=== PATIENT | male | born 1960 | race Caucasian/White ===

== ENCOUNTER 2017-03-20 08:45 | Emergency (ER) | payer OTHER ==
[~2017-03-20] VITALS: Ht 175.3 cm; Wt 116.1 kg
[2017-03-20 09:06] VITALS: BP 159/91; PULSE 100; RESP 16; TEMP 100.2; O2SAT 92
[2017-03-20] MEDS ORDERED: CIAL5TAB PO (09:30)
[2017-03-20] MEDS ORDERED: FLUO40CA PO (09:30)
[2017-03-20] MEDS ORDERED: HYDR25TA5 PO (09:30)
[2017-03-20] MEDS ORDERED: ATOR80TA45 PO (09:30)
--- NOTE | 2017-03-20 09:37 | PD ---
HPI Chief Complaint: Cold / Flu Symptoms Time Seen by Provider: 09:20 Travel History International Travel<30 days: No Contact w/Intl Traveler<30days: No Traveled to known affect area: No History of Present Illness HPI This patient complains of runny nose congestion cough. He's had subjective fever. Duration 2 days. Severity is moderate. No alleviating factors. No exacerbating factors. He quit smoking years ago. He denies lung disease other than saying he was treated for pneumonia one month ago. No ill contacts. PFSH Past Medical History Anxiety: Yes Depression: Yes Cardiovascular Problems: Yes (HTN, high chol) High Cholesterol: Yes Hypertension: Yes Respiratory: Yes (pneumonia) Tetanus Vaccination: Unknown Influenza Vaccination: No Past Surgical History Joint Replacement: Yes (bilat hip replacement ) Social History Alcohol Use: Yes (1-2 several times weekly) Tobacco Use: No Substance Use: No Allergies-Medications (Allergen,Severity, Reaction): Coded Allergies: No Known Allergies (Unverified , 03/20/17) Reported Meds & Prescriptions Reported Meds & Active Scripts Active Reported Cialis (Tadalafil) 5 Mg Tab 5 Mg PO DIRECTED Do not exceed 1 dose/day. Atorvastatin (Atorvastatin Calcium) 80 Mg Tab 80 Mg PO DAILY Hydrochlorothiazide 25 Mg Tab 25 Mg PO DAILY Fluoxetine (Fluoxetine HCl) 40 Mg Cap 40 Cap PO DAILY Review of Systems General / Constitutional: Positive: Fever HENT: No: Lightheadedness Respiratory: Positive: Cough Gastrointestinal: No: Vomiting Genitourinary: No: Urgency Musculoskeletal: No: Myalgias Skin: No Rash Physical Exam Narrative GENERAL: Well-nourished, well-developed patient in no apparent distress. SKIN: Focused skin assessment reveals no rash and nodules. Skin is Warm and dry. HEAD: Atraumatic. Normocephalic. EYES: Pupils equal and round. No scleral icterus. No injection or drainage. ENT: No nasal bleeding or discharge. Mucous membranes pink and moist. Nares shows some rhinorrhea, throat clear NECK: Trachea midline. No JVD. CARDIOVASCULAR: Regular rate and rhythm. No murmur appreciated. RESPIRATORY: No accessory muscle use. Clear to auscultation. Breath sounds equal bilaterally. GASTROINTESTINAL: Abdomen soft, non-tender, nondistended. Hepatic and splenic margins not palpable. MUSCULOSKELETAL: No obvious deformities. No clubbing. No cyanosis. No edema. NEUROLOGICAL: Awake and alert. No obvious cranial nerve deficits. Motor grossly within normal limits. Normal speech. PSYCHIATRIC: Appropriate mood and affect; insight and judgment normal. Data Data Last Documented VS Vital Signs Date Time Temp Pulse Resp B/P (MAP) Pulse Ox O2 Delivery O2 Flow Rate FiO2 03/20/17 09:25 Room Air 03/20/17 09:06 100.2 100 16 159/91 (113) 92 Orders Orders Chest, Single Ap (03/20/17 ) Influenzae A/B Antigen (03/20/17 09:30) MDM Medical Decision Making Medical Screen Exam Complete: Yes Emergency Medical Condition: Yes Medical Record Reviewed: Yes Differential Diagnosis Flu syndrome, pneumonia, bronchitis Narrative Course I have reviewed the patient's electronic medical record. Influenza swab is positive I reviewed his chest x-ray which shows a bit of atelectasis in the left base. Radiologist reading is noted. This does not look like a infiltrate requiring treatment He has viral infection Inhaler prescribed to use as needed Diagnosis Primary Impression: Influenza A Additional Instructions: The patient was advised to follow up with their physician and return if they worsen. Med/Other Pt SpecificInfo: Prescription(s) given Scripts Albuterol 18 GM Inh (Ventolin Hfa 18 GM Inh) 90 Mcg/Act Aer 2 PUFF INH Q4-6H Y for SHORTNESS OF BREATH, #1 INHALER 0 Refills Prov: German Nathan MD 03/20/17 Disposition: 01 DISCHARGE HOME Condition: Stable German Nathan MD Mar 20, 2017 09:37
--- NOTE | 2017-03-20 09:56 | RADRPT ---
EXAM DATE/TIME: 03/20/2017 09:37 [facility] COMPARISON: No previous studies available for comparison. INDICATIONS : Cough, short of breath, diagnosed with pneumonia 2 months ago. MEDICAL HISTORY : None. SURGICAL HISTORY : None. ENCOUNTER: Initial ACUITY: 4 - 6 days PAIN SCORE: 0/10 LOCATION: Bilateral chest FINDINGS: A single view of the chest demonstrates diminished lung volumes. Minimal patchy density left lower lo be. Right lung clear. Heart normal in size The cardiomediastinal contours are unremarkable. Osseous structures are intact. CONCLUSION: Minimal patchy density left lower lobe could be atelectasis or infiltrate. Navdeep Farfan MD on March 20, 2017 at 9:53 Board Certified Radiologist. This report was verified electronically.
[2017-03-20] MEDS ORDERED: VENTAER INH (10:23)
[2017-03-20 10:59] VITALS: BP 135/83
== END 2017-03-20 11:01 | disposition home or self-care (01) ==
LOC: PHED 08:45
DX: J10.1 Influenza due to other identified influenza virus with other respiratory manifestations (principal); E78.00 Pure hypercholesterolemia, unspecified; I10 Essential (primary) hypertension; Z87.891 Personal history of nicotine dependence
CPT/HCPCS: 71045; 87804; 99284

== ENCOUNTER 2017-03-27 09:43 | Emergency (ER) | payer OTHER ==
[~2017-03-27] VITALS: Ht 177.8 cm; Wt 112.0 kg
[~2017-03-27 09:43] MED LIST: ATOR80TA45 PO; CIAL5TAB PO; FLUO40CA PO; HYDR25TA5 PO; VENTAER INH
[2017-03-27 09:46] VITALS: BP 143/97; PULSE 70; RESP 20; TEMP 97.9; O2SAT 94
--- NOTE | 2017-03-27 10:05 | PD ---
HPI Chief Complaint: General Weakness Time Seen by Provider: 09:57 Travel History International Travel<30 days: No Contact w/Intl Traveler<30days: No Traveled to known affect area: No History of Present Illness HPI This is a 57-year-old male who presents to the emergency department having been diagnosed with influenza A 1 week ago who is here with generalized weakness, constant, severe, feeling like he does not have the motivation to do anything. His says that he has not been staying awake long enough to eat or drink and she is worried he is getting dehydrated. He has had a nonproductive cough and some rhinorrhea but otherwise his chief complaint is feeling very malaised. PFSH Past Medical History Anxiety: Yes Depression: Yes Cardiovascular Problems: Yes (HTN, high chol) High Cholesterol: Yes Diminished Hearing: No Hypertension: Yes Respiratory: Yes (pneumonia) Tetanus Vaccination: < 5 Years Influenza Vaccination: No Past Surgical History Joint Replacement: Yes (bilat hip replacement ) Social History Alcohol Use: Yes (1-2 several times weekly) Tobacco Use: No Substance Use: No Allergies-Medications (Allergen,Severity, Reaction): Coded Allergies: No Known Allergies (Unverified , 03/27/17) Reported Meds & Prescriptions Reported Meds & Active Scripts Active Ventolin Hfa 18 GM Inh (Albuterol Sulfate) 90 Mcg/Act Aer 2 Puff INH Q4-6H PRN Reported Cialis (Tadalafil) 5 Mg Tab 5 Mg PO DIRECTED Do not exceed 1 dose/day. Atorvastatin (Atorvastatin Calcium) 80 Mg Tab 80 Mg PO DAILY Hydrochlorothiazide 25 Mg Tab 25 Mg PO DAILY Fluoxetine (Fluoxetine HCl) 40 Mg Cap 40 Cap PO DAILY Review of Systems Except as stated in HPI: all other systems reviewed are Neg Physical Exam Narrative GENERAL:Well appearing, no acute distress. Has ketotic odor SKIN: Focused skin assessment warm and dry. HEAD: Atraumatic. Normocephalic. EYES: Pupils equal and round. No injection or drainage. ENT: Dry mucous membranes. Mild posterior pharyngeal erythema with no exudates. NECK: Trachea midline. CARDIOVASCULAR: Regular rate and rhythm. No murmur appreciated. RESPIRATORY: Clear to auscultation. Breath sounds equal bilaterally. GASTROINTESTINAL: Abdomen soft, non-tender, nondistended. MUSCULOSKELETAL: No obvious deformities. NEUROLOGICAL: Awake and alert. No obvious cranial nerve deficits. Moving all extremities. PSYCHIATRIC: Appropriate mood and affect; insight and judgment normal. Data Data Last Documented VS Vital Signs Date Time Temp Pulse Resp B/P (MAP) Pulse Ox O2 Delivery O2 Flow Rate FiO2 03/27/17 09:54 94 Room Air 03/27/17 09:46 97.9 70 20 143/97 (112) Orders Orders Complete Blood Count With Diff (03/27/17 10:03) Comprehensive Metabolic Panel (03/27/17 10:03) ^ Insert Iv (03/27/17 10:03) Sodium Chlor 0.9% 1000 Ml Inj (Ns 1000 M (03/27/17 10:15) Labs Laboratory Tests Test 03/27/17 10:15 White Blood Count 6.4 TH/MM3 Red Blood Count 5.36 MIL/MM3 Hemoglobin 15.4 GM/DL Hematocrit 46.7 % Mean Corpuscular Volume 87.2 FL Mean Corpuscular Hemoglobin 28.8 PG Mean Corpuscular Hemoglobin Concent 33.0 % Red Cell Distribution Width 13.7 % Platelet Count 266 TH/MM3 Mean Platelet Volume 7.1 FL Neutrophils (%) (Auto) 70.7 % Lymphocytes (%) (Auto) 19.7 % Monocytes (%) (Auto) 8.7 % Eosinophils (%) (Auto) 0.7 % Basophils (%) (Auto) 0.2 % Neutrophils # (Auto) 4.5 TH/MM3 Lymphocytes # (Auto) 1.3 TH/MM3 Monocytes # (Auto) 0.6 TH/MM3 Eosinophils # (Auto) 0.0 TH/MM3 Basophils # (Auto) 0.0 TH/MM3 CBC Comment DIFF FINAL Differential Comment Blood Urea Nitrogen 11 MG/DL Creatinine 0.70 MG/DL Random Glucose 112 MG/DL Total Protein 7.1 GM/DL Albumin 3.5 GM/DL Calcium Level 8.4 MG/DL Alkaline Phosphatase 119 U/L Aspartate Amino Transf (AST/SGOT) 15 U/L Alanine Aminotransferase (ALT/SGPT) 30 U/L Total Bilirubin 0.9 MG/DL Sodium Level 138 MEQ/L Potassium Level 3.5 MEQ/L Chloride Level 102 MEQ/L Carbon Dioxide Level 28.4 MEQ/L Anion Gap 8 MEQ/L Estimat Glomerular Filtration Rate 115 ML/MIN MDM Medical Decision Making Medical Screen Exam Complete: Yes Emergency Medical Condition: Yes Interpretation(s) Afebrile, no tachycardia, mild hypertension no leukocytosis Electrolytes are reassuring Differential Diagnosis Dehydration, renal failure, electrolyte abnormality, influenza Narrative Course This is a 57-year-old male who presents to the emergency department with generalized malaise in the setting of a known diagnosis of influenza 1 week ago. He was placed on a monitor and an IV was established. Labs were obtained which were all reassuring with no evidence of severe dehydration. Patient was given a liter of IV hydration. I think he can be discharged home and continue to orally hydrate. Diagnosis Primary Impression: Weakness Additional Impression: Influenza Patient Instructions: General Instructions Additional Instructions: If you develop severe chest pain, shortness of breath, sweating, lightheadedness , dizziness or difficulty breathing return to the emergency department immediately. Followup with your primary care physician in 2-3 days if your symptoms are not resolved. Med/Other Pt SpecificInfo: No Change to Meds Disposition: 01 DISCHARGE HOME Condition: Stable Chelo Hernandez MD Mar 27, 2017 10:05
[2017-03-27] MEDS ORDERED: SODIUM CHLOR 0.9% 1000 ML INJ 1,000 ML IV ONE (10:15)
[2017-03-27 10:19] LABS: AUTOMATED NEUTROPHIL # 4.5 TH/MM3 (1.8-7.7); BASOPHIL % 0.2 % (0.0-2.0); EOSINOPHIL % 0.7 % (0.0-4.0); HEMATOCRIT 46.7 % (39.0-51.0); HEMOGLOBIN 15.4 GM/DL (13.0-17.0); LYMPH % 19.7 % (9.0-44.0); LYMPHOCYTE # 1.3 TH/MM3 (1.0-4.8); MEAN CELL VOLUME 87.2 FL (80.0-100.0); MEAN CORPUSCULAR HEMOGLOBIN 28.8 PG (27.0-34.0); MEAN PLATELET VOLUME 7.1 FL (7.0-11.0); MONO % 8.7 % (0.0-8.0); MONOCYTE # 0.6 TH/MM3 (0-0.9); NEUT % 70.7 % (16.0-70.0); PLATELET COUNT 266 TH/MM3 (150-450); RED BLOOD COUNT 5.36 MIL/MM3 (4.50-5.90); RED CELL DISTRIBUTION WIDTH 13.7 % (11.6-17.2); WHITE BLOOD COUNT 6.4 TH/MM3 (4.0-11.0)
[2017-03-27 10:29] LABS: CHLORIDE 102 MEQ/L (98-107); SODIUM (NA) 138 MEQ/L (136-145)
[2017-03-27 10:31] LABS: CALCIUM 8.4 MG/DL (8.5-10.1)
[2017-03-27 10:32] LABS: ALBUMIN 3.5 GM/DL (3.4-5.0); BICARBONATE 28.4 MEQ/L (21.0-32.0); BLOOD UREA NITROGEN 11 MG/DL (7-18); GLUCOSE,RANDOM 112 MG/DL (74-106)
[2017-03-27 10:35] LABS: ALT (GPT) 30 U/L (12-78); AST (GOT) 15 U/L (15-37); GLOMERULAR FILTRATION RATE 115 ML/MIN (>89)
[2017-03-27 10:37] LABS: TOTAL BILIRUBIN ADULT 0.9 MG/DL (0.2-1.0); TOTAL PROTEIN 7.1 GM/DL (6.4-8.2)
[2017-03-27 10:38] LABS: ALKALINE PHOSPHATASE 119 U/L (45-117)
== END 2017-03-27 11:04 | disposition home or self-care (01) ==
LOC: PHED 09:43
DX: R53.1 Weakness (principal); J11.1 Influenza due to unidentified influenza virus with other respiratory manifestations; R05 Cough; J34.89 Other specified disorders of nose and nasal sinuses; R53.81 Other malaise; I10 Essential (primary) hypertension; E78.00 Pure hypercholesterolemia, unspecified; F41.8 Other specified anxiety disorders
CPT/HCPCS: 80053; 85025; 96360; 99283; J7030